=== PATIENT | female | born 1960 | race Caucasian/White ===

== ENCOUNTER 2021-11-12 14:17 | Outpatient (REF) | payer OTHER, SELFPAY ==
[2021-11-12 15:44] LABS: COVID-19 Test Negative (Negative)
== END 2021-11-12 14:18 | disposition home or self-care (01) ==
LOC: HO.LAB 14:17
PROVIDERS: Visit Provider Internal Medicine
DX: Z20.822 Contact with and (suspected) exposure to COVID-19 (principal)
CPT/HCPCS: 87635; C9803